=== PATIENT | male | born 1970 | race Caucasian/White ===

== ENCOUNTER 2021-05-05 18:46 | Emergency (ER) | payer BC ==
[~2021-05-05] VITALS: Ht 182.9 cm; Wt 90.7 kg
[2021-05-05 18:50] VITALS: BP_SYST 129
--- NOTE | 2021-05-05 19:21 | NUR ---
Patient to ER bed 8 to gown for evaluation. Side rails up. Report given to Ankur HALE.
--- NOTE | 2021-05-05 19:25 | NUR ---
Dr. Adkins bedside for eval and pt assess for procedure
[2021-05-05] MEDS ORDERED: LIDOCAINE 1% 10 MG/ML, 20 ML MDV INJ ONE (19:45)
[2021-05-05] MEDS ORDERED: LIDOCAINE/EPI 1% 1:100000 20 ML VIAL INJ ONE (19:45)
[2021-05-05] MEDS ORDERED: BACITRACIN 1 GM OINT TP ONE (19:45)
--- NOTE | 2021-05-05 19:50 | NUR ---
Pt BIB family to ED C/O forehead pain after he hit his head last night. Patient states that he was at home tripped and fell and the metal gate outside of his house. This morning he woke up with mild soreness today over his scalp. He also reports feeling oozy. He denies neck pain, nausea, or vomiting. Reports he had a tetanus vaccine within the past 5-years. He denies taking blood thinners
[2021-05-05 20:20] VITALS: BP_SYST 134
--- NOTE | 2021-05-05 20:20 | NUR ---
Patient given written and verbal discharge instructions and verbalizes understanding. ER MD discussed with patient the results and treatment provided. Patient in stable condition. ID arm band removed. Patient educated on pain management and to follow up with PMD. Pain Scale 0/10 Opportunity for questions provided and answered.
== END 2021-05-05 20:20 | disposition home or self-care (01) ==
LOC: SED 18:46
DX: S01.01XA Laceration without foreign body of scalp, initial encounter (principal); W01.198A Fall on same level from slipping, tripping and stumbling with subsequent striking against other object, initial encounter; Y93.89 Activity, other specified; Y92.89 Other specified places as the place of occurrence of the external cause; Y99.8 Other external cause status
CPT/HCPCS: 99282